=== PATIENT | female | born 1960 | race Two or more races ===

== ENCOUNTER 2016-10-28 17:33 | Emergency (ER) | payer OTHER ==
[~2016-10-28] VITALS: Ht 152.4 cm; Wt 47.6 kg
--- NOTE | 2016-10-28 17:33 | NUR ---
BIB FRIEND C/O SUICIDAL IDEATION PLAN IS OD ON PILLS, RUN INTO THE TRAFFIC, HAVING AUDIBLE HALLUCINATIONS. NAD NOTED. RR EVEN AND UNLABORED. PENDING MD FOR EVMARIBELL.
[2016-10-28 18:24] LABS: BASOPHILS % (AUTO) 0.3 % (0.0-2.0); EOSINOPHILS # (AUTO) 0.1 /CMM (0.0-0.7); EOSINOPHILS % (AUTO) 1.3 % (0.0-6.0); HEMATOCRIT 40 % (33-45); HEMOGLOBIN 13.4 g/dL (11.5-14.8); LYMPHOCYTES # (AUTO) 1.5 /CMM (0.8-4.8); LYMPHOCYTES % (AUTO) 19.4 % (20.0-44.0); MEAN CORPUSCULAR HEMOGLOBIN 30 PG (26.0-33.0); MEAN CORPUSCULAR HGB CONC 33 g/dl (31.0-36.0); MEAN CORPUSCULAR VOLUME 89 fL (82-100); MONOCYTES # (AUTO) 0.3 /CMM (0.1-1.30); MONOCYTES % (AUTO) 4.5 % (2.0-12.0); NEUTROPHILS # (AUTO) 5.7 /CMM (1.8-8.9); NEUTROPHILS % (AUTO) 74.5 % (43.0-81.0); PLATELET COUNT (AUTO) 235 /CMM (150-450); RDW COEFFICIENT OF VARIATION 12.9 (11.5-15.0); RED BLOOD CELL COUNT(AUTO) 4.49 MIL/uL (4.0-5.2); WHITE BLOOD COUNT (AUTO) 7.6 K/uL (4.3-11.0)
[2016-10-28] MEDS ORDERED: IBUPROFEN 600 MG TABLET PO ONE ×2 (18:30→18:34)
[2016-10-28 18:34] LABS: CARBON DIOXIDE 28 mmol/L (21-32); CHLORIDE 102 mmol/L (98-107); GLUCOSE 147 mg/dL (74-106); POTASSIUM 3.6 mmol/L (3.5-5.1); SODIUM SERUM 136 mmol/L (136-145); UREA NITROGEN, BLOOD 17 mg/dL (7-18)
[2016-10-28] MEDS ORDERED: ACETAMINOPHEN ES 500 MG TABLET ONE (18:36)
[2016-10-28 18:39] LABS: ALANINE AMINOTRANSFERASE 20 U/L (12-78); ALBUMIN 3.7 g/dL (3.4-5.0); ALKALINE PHOSPHATASE 83 U/L (46-116); ASPARTATE AMINOTRANSFERASE 18 U/L (15-37); BILIRUBIN,DIRECT 0.1 mg/dL (0.0-0.2); BILIRUBIN,TOTAL 0.4 mg/dL (0.2-1.0); TOTAL PROTEIN, SERUM 6.8 g/dL (6.4-8.2)
[2016-10-28 18:40] LABS: ACETAMINOPHEN 0 ug/ml (10-30); ALCOHOL, BLOOD < 3 mg/dL (0-0); SALICYLATE 1.6 mg/dL (2.8-20.0)
--- NOTE | 2016-10-28 18:55 | NUR ---
CALLED [facility] FOR PSYCH EVAL, ETA 1 HOUR
[2016-10-28 19:00] LABS: APPEARANCE,URINE Clear (CLEAR); BILIRUBIN,URINE Negative (NEGATIVE); BLOOD, URINE Negative Ery/uL (NEGATIVE); COLOR,URINE Yellow (YELLOW); KETONES,URINE Negative (NEGATIVE); LEUKOCYTE ESTERASE ,URINE Negative (NEGATIVE); NITRITE, URINE Negative (NEGATIVE); PROTEIN,URINE Trace mg/dl (NEGATIVE); UGLUCOSE Negative (NEGATIVE)
[2016-10-28] MEDS ORDERED: ACETAMINOPHEN ES 500 MG TABLET PO ONE (19:00)
--- NOTE | 2016-10-28 20:18 | NUR ---
[facility] AT BED SIDE FOR PSYCH EVAL
--- NOTE | 2016-10-28 20:25 | NUR ---
Baudilio faust in [facility] - 10/28/16 at 2025 by LESIA MEDICATED PT ORDERED
--- NOTE | 2016-10-28 21:14 | NUR ---
PT RESTING IN ER BED, NAD NOTED, SKIN WARM AND DRY. WILL CONTINUE TO MONITOR
--- NOTE | 2016-10-28 21:40 | NUR ---
PT KVNG OUTSIDE FOR SMOKE BREAK WITH HIGH TENSION TESTER TJ MARTINEZ
--- NOTE | 2016-10-28 21:45 | NUR ---
PT RETURNED TO ER BED
--- NOTE | 2016-10-28 22:14 | NUR ---
CALLED [facility] FOR TRANSPORT TO [facility], ETA 1 HOUR
[2016-10-28 22:40] VITALS: BP 129/69
--- NOTE | 2016-10-28 22:42 | NUR ---
REPORT GIVEN TO PJ/SUJATA AT [facility].
--- NOTE | 2016-10-28 23:49 | NUR ---
[facility] AT BED SIDE FOR TRANSPORT
== END 2016-10-28 23:56 ==
LOC: ER 17:40
DX: F32.9 Major depressive disorder, single episode, unspecified (principal)
CPT/HCPCS: 36415; 80048; 80076; 80305; 80329; 81001; 85025; 99285; A4606; G0480 ×2; Z7610; 81000-TC